=== PATIENT | female | born 1950 | race Caucasian/White ===

== ENCOUNTER 2021-11-17 02:40 | Outpatient (CLI) | payer MEDICARE, MEDICAID, SELFPAY ==
[2021-11-10 13:08] VITALS: BMI 39.9
--- NOTE | 2021-11-10 13:14 | PC.NURSE ---
Addendum entered by Bronwyn Jones RN 11/10/21 13:16: PROCEDURE 11/17/21 ARRIVE AT 0830 FOR 1030 PROCEDURE Original Note: Pre Radiology instructions Report to the Outpatient Waiting Room, entrance under the green pavilion located off [facility], at time on date . Procedure Time: . YOU MAY BE MONITORED AT HOSPITAL FOR UP TO 4 HOURS AFTER YOUR PROCEDURE. One visitor will be allowed to accompany the patient into the hospital. The visitor will be instructed to remain with patient at all times or leave the building due to restrictions. We will allow the visitor to come back to the postoperative area when patient is ready. NO children visitors allowed at this time. You and your visitor will be asked to self-screen and do not enter if you have any COVID symptoms. A mask is required within the hospital. Patients are to have no food or drink 6 hours prior to procedure time Driving will be restricted after the procedure, you must have a person to drive you home. Labs will be drawn in preop area and once reviewed, you will be taken to radiology area for procedure. When the procedure is completed, you will be taken to outpatient where you will be monitored for several hours. You may have one visitor in this area. Other than holding anti-coagulants, patient may take other medication(s) as scheduled. Prior to your appointment date patients are instructed to hold anti-coagulants after discussing with ordering provider to stop. If unable to discontinue anti-coagulants please notify radiologist. No aspirin or warfarin (Coumadin) for 7 days prior to the procedure. No clopidogrel (Plavix), ticagrelor (Brilinta), prasugrel (Effient) or dabigatran (Pradaxa) for 5 days prior to the procedure. No rivaroxaban (Xarelto), apixaban (Eliquis), dipyridamole (Aggrenox or Persantine) or cilostazol (Pletal) for 2 days prior to the procedure. Medications to discontinue per physician: NONE Date to take last dose: Please leave all valuables, including medications, at home the day of procedure. The hospital will not accept responsibility for valuables. Wear comfortable, loose fitting clothing. Follow any additional instructions given to you from ordering provider. Telephone instructions given to __PATIENT and asked if any additional questions and then verbalized understanding. Patient advised to call scheduling provider office or registration scheduling [phone] if any additional questions.
--- NOTE | ~2021-11-17 | XR_ITS ---
EXAMINATION: 1. CT lumbar spine w con 2. XR myelogram spine lumbosacral DATE: 11/17/2021 11:18 INDICATION: Spondylosis without myelopathy or radiculopathy. TECHNIQUE: The procedure including the risks, benefits, and alternatives was discussed with the patie nt. Risks discussed included spinal headache, cerebrospinal fluid leak, bleeding, and infection. The patient understood the risks and agreed to proceed. A timeout was performed to verify the patient' s name, date of , and procedure to be performed. The skin overlying the L5-L1 and L2-L3 levels was prepped and draped in usual sterile fashion. Subcutaneous 1% lidocaine was used for local anesth esia. A 22 gauge spinal needle was advanced under fluoroscopic guidance at L5-S1 and then at L2-L3. 17 mL Omnipaque 180 was injected. The needle was removed and the entry site was cleaned and dressed. There were no immediate complications. Fluoroscopy exposure time was 0.3 minutes. The total number o f images was 8. Computed tomography (CT) of the lumbar spine was performed without intravenous contra st. Automated exposure control and iterative reconstruction technique were employed. The dose-length product was 1158.99 mGy-cm. COMPARISON: None FINDINGS: LUMBAR MYELOGRAM: There is indentation of the thecal sac at multiple levels that will be further defi kishor on the postmyelogram CT. POST-MYELOGRAM LUMBAR SPINE CT: There is an epidural electrode in thoracic spine. There is a second e lectrode in the subcutaneous fat posterior to lumbar spine. There is 15 degrees levoscoliosis of thor acolumbar spine. Vertebral body heights are normal. There is mildly decreased disc height at T12-L1 a nd L1-L2, moderately decreased disc height at L2-L3 and L3-L4, mildly decreased disc height at L4-L5, and moderately decreased disc height at L5-S1. There is vacuum disc phenomenon from T12-L1 through L 3-L4 and at L5-S1. The conus medullaris is at T12-L1. The following disc levels are specifically disc ussed: T12-L1: The disc is bulging. There is mild right and moderate left facet joint osteoarthritis. There is no neural foraminal stenosis. There is mild central canal stenosis. L1-L2: The disc is bulging. There is moderate bilateral facet joint osteoarthritis. There is mild micah ateral neural foraminal stenosis. There is mild central canal stenosis. L2-L3: The disc is bulging. There is severe right and moderate left facet joint osteoarthritis. There is mild bilateral neural foraminal stenosis. There is mild central canal stenosis. L3-L4: The disc is bulging. There is severe bilateral facet joint osteoarthritis. There is mild bilat eral neural foraminal stenosis. There is mild central canal stenosis. L4-L5: The disc is bulging. There is severe bilateral facet joint osteoarthritis. There is mild bilat eral neural foraminal stenosis. There is mild central canal stenosis. L5-S1: The disc is bulging. There is severe bilateral facet joint osteoarthritis. There is mild left neural foraminal stenosis. There is mild central canal stenosis. IMPRESSION: 1. Moderate lumbar spondylosis. 2. Lumbar levoscoliosis. 3. Thoracic epidural electrode. Second electrode in the subcutaneous fat posterior to the lumbar spin e. Reviewed, dictated and finalized at location A. IMPRESSION: 1. Moderate lumbar spondylosis. 2. Lumbar levoscoliosis. 3. Thoracic epidural electrode. Second electrode in the subcutaneous fat director staffing ior to the lumbar spine.
[2021-11-17 08:32] VITALS: BP 154/74; PULSE 72; RESP 14; TEMP 36.1; O2SAT 96
[2021-11-17 08:40] VITALS: BMI 40.6
[2021-11-17 09:26] LABS: Platelet Count Result 306 k/mm3 (150-375)
[2021-11-17 09:45] LABS: INR 0.9; Prothrombin Time 12.1 Seconds (11.1-14.7)
[2021-11-17 11:19] VITALS: BP 133/86; PULSE 70; RESP 14; O2SAT 99
[2021-11-17 11:30] VITALS: BP 119/76; PULSE 65; RESP 14; O2SAT 99
[2021-11-17 11:45] VITALS: BP 114/70; PULSE 60; RESP 14; O2SAT 96
[2021-11-17 12:30] VITALS: BP 120/75; PULSE 62; RESP 14; O2SAT 97
[2021-11-17 13:20] VITALS: BP 123/75; PULSE 65; RESP 14; O2SAT 97
--- NOTE | 2021-11-17 13:21 | SUR.PHASEII ---
1310 DR. GARCIA CALLED TO ASK HIM FOR D/C ACTIVITY FOR PATIENT. NO RESTRICTIONS PER DR. GARCIA.
== END 2021-11-17 13:20 | disposition home or self-care (01) ==
PROVIDERS: PCP Internal Medicine Geriatric Medicine; Referring Provider Neurological Surgery; Visit Provider Radiology Diagnostic Radiology
DX: M47.896 Other spondylosis, lumbar region (principal)
CPT/HCPCS: 36415; 62304; 72132; 85049; 85610; Q9965

== ENCOUNTER 2022-04-30 00:48 | Day surgery (SDC) | payer MEDICARE, MEDICAID, SELFPAY ==
--- NOTE | 2022-04-24 09:29 | PC.NURSE ---
Report to the Outpatient Waiting Room, entrance under the green pavilion located off [facility], at time __0600 on date __04/30/22 . Planned Procedure Time: __0730 . Time changes happen often and if your time is changed the preop area will call you the afternoon before. - You and your visitor will be asked to self-screen and do not enter if you have any COVID symptoms. - Only one visitor is requested with a max of two and NO children visitors are allowed at this time. - The patient visitor may be requested to leave or wait in car when not with patient due to distancing restrictions. - A mask is optional within the hospital at this time. Patients may have clear liquids (water, carbonated beverages, clear teas, apple juice) until 3 hours prior to surgery with a maximum of 20 ounces. - No food from midnight until time of surgery - Infants may have breast milk until 4 hours before surgery, formula 6 hours prior to surgery. - Children will be allowed to drink immediately following surgery. If applicable, please bring a bottle or sippy cup to assist with drinking. Juice, water, soda, and popsicles are readily available. For infants on formula, please bring formula the day of surgery. Pacifiers are allowed. Take the following medications with a SIP of water the morning of surgery: ___CARVEDILOL,FLUOXETINE,LAMOTRIGINE,LEVOTHYROXINE AND ENTRESTO DO NOT STOP ANY OF YOUR OTHER PRESCRIPTION MEDICATIONS PRIOR TO SURGERY ?EXCEPT THE FOLLOWING Medications to discontinue per physician ___ALL VITAMINS/SUPPLEMENTS 3 DAYS PRE OP.LAST DOSE 04/26/22 Please no make-up, nail english, hairspray, perfume, deodorant, or body powder the day of surgery. No jewelry (including any body piercings) or valuables the day of surgery, leave them at home. Please take a shower or bath the night before, or the morning of, surgery with an antibacterial soap. Wear comfortable, loose fitting clothing. Children are encouraged to wear pajamas. - Jewelry must be removed prior to entering the operating room. Rings and piercings that are not removed may be cut off. - The hospital will not accept responsibility for valuables. - Please leave all valuables, including medications, at home the day of surgery. If you are going home after surgery, a licensed rolloff driver must drive you home. - NO public transportation without another adult if you receive anesthesia. - We recommend that an adult stay with you for 24 hours following discharge. - We also recommend that you do not drive, make important decision, drink alcoholic beverages, or take any drugs that were not prescribed by your health care provider for at least 24 hours after your discharge time. For Pediatric surgeries, we recommend two adults accompany the child home. Follow any additional instructions given to you from your surgeon. If you or anyone in your household have experienced Covid symptoms in the past week, please notify your surgeon or the nurse liaison at the phone number below for possible testing. Telephone instructions given to __PATIENT and asked if any additional questions and then verbalized understanding. Patient advised to call surgeon office or pre surgery nurse liaison [phone] if any additional questions.
[2022-04-24 09:47] VITALS: BMI 40.7
[2022-04-30] VITALS (14 sets, daily range): BP systolic 102–158; BP diastolic 41–98; PULSE 69–107; RESP 12–24; TEMP 35.9–36.9; O2SAT 87–96
--- NOTE | ~2022-04-30 | XR_ITS ---
EXAMINATION: XR fluoroscopy no charge DATE: 04/30/2022 10:23 INDICATION: Spinal stimulator removal/stimulator insert TECHNIQUE: 2 fluoroscopic images of the lower thoracic spine were obtained during procedure performed by Dr. Mccann. Radiologist was not present for the imaging or procedure. The amount of fluoroscopy time used during this procedure was 0.3 minutes. Total DAP was 0.3067 mGym^2 COMPARISON: None. FINDINGS: Cholecystectomy clip in the right upper quadrant. Images demonstrate tissue retractors on either side of a lucent surgical defect projecting over the thoracic spine. A spinal stimulator lead projects ov er the central canal of the lower thoracic spine at the site of the lucent surgical defect on the fin al image. IMPRESSION: 1. Fluoroscopy utilized during spinal stimulator lead placement at the lower thoracic spine. See proc edure note for further detail. Reviewed, dictated and finalized at location A. IMPRESSION: 1. Fluoroscopy utilized during spinal stimulator lead placement at the lower th oracic spine. See procedure note for further detail.
--- NOTE | 2022-04-30 06:54 | WPDANESEPPF ---
Anes - Initial Pre Proc Eval Procedure: Operation Date: 04/30/22 07:30 Proposed Procedures p Removal of Dorsal Column Stimulator, Insertion of Dorsal Column Stimulator by Laminectomy - Devonte Mccann MD Date/Time: 04/30/22 06:54 Surgeon: Devonte Mccann MD Pre Op Diagnosis: Chronic Back and Turner Legs Pain Patient Data Age: 71 Gender: F Height: 1.7 m Weight: 117.99 kg Allergies Allergy/AdvReac Type Severity Reaction Status Date / Time clonazepam [From Klonopin] Allergy Unknown Hallucinati Verified 04/30/22 06:32 ng diazepam Allergy Unknown Other Verified 04/30/22 06:32 morphine Allergy Unknown Other Verified 04/30/22 06:32 vilazodone [From Viibryd] Allergy Unknown Hyperactive Verified 04/30/22 06:32 NSAIDS (Non-Steroidal AdvReac Other Verified 04/30/22 06:32 Anti-Inflamma oxycodone AdvReac Other Verified 04/30/22 06:32 Home Medications Medication Instructions Recorded Confirmed Type atorvastatin 20 mg tablet 20 mg PO DAILY 11/03/21 04/30/22 History carvedilol 3.125 mg tablet 3.125 mg PO Q12H 11/03/21 04/30/22 History cholecalciferol (vitamin D3) 10 10 mcg PO DAILY 11/03/21 04/30/22 History mcg (400 unit) capsule fluoxetine 40 mg capsule 40 mg PO DAILY 11/03/21 04/30/22 History lamotrigine 150 mg tablet 75 mg PO DAILY 11/03/21 04/30/22 History mecobalamin (vitamin B12) 1,000 1,000 mcg sublingual DAILY 11/03/21 04/30/22 History mcg disintegrating tablet,sublingual olanzapine 5 mg tablet 5 mg PO DAILY 11/03/21 04/30/22 History omeprazole 20 mg capsule,delayed 20 mg PO DAILY 11/03/21 04/30/22 History release levothyroxine 88 mcg tablet 88 mcg PO DAILY 11/10/21 04/30/22 History sacubitril 24 mg-valsartan 26 mg 1 tablet PO BID 11/10/21 04/30/22 History tablet (Entresto) spironolactone 25 mg tablet 25 mg PO DAILY 11/10/21 04/30/22 History Patient hx anesthesia problems: other (low bp and o2) Family hx anesthesia problems: none Results Review: All pre-operative results and documents have been reviewed as part of the pre-operative evaluation. [facility] Past Medical History Medical History Cardiomyopathy Degenerative disc disease Depression with anxiety Hepatitis C Hiatal hernia High blood pressure High cholesterol Lumbar radicular pain Lumbar stenosis with neurogenic claudication Other chronic pain Spine disorder Spondylosis without myelopathy or radiculopathy, lumbosacral region Trochanteric bursitis of right hip Surgical History Surgical History H/O bilateral cataract extraction H/O hernia repair x2 Hx of appendectomy Hx of cholecystectomy S/P complete hysterectomy S/P excision of lipoma x2 from upper rt thigh S/P insertion of spinal cord stimulator 05/10/20 S/P tonsillectomy and adenoidectomy Family History Family History Other Acute myocardial infarction Depression Emphysema lung High cholesterol Hypertension Spine disorder Social History Social History Smoking status: Never smoker Second hand tobacco smoke exposure: No Alcohol intake: never Substance use: never Living arrangements: alone Occupation/Education: retired Spiritual care concerns: No Anes - Eval Final PreProcedure Day of Procedure 04/30/22 06:54 Patient weight: morbidly obese Heart: regular rate and rhythm Lungs: clear to auscultation Airway: Mallampati scale class III Neurological: alert and oriented Last oral intake: >/= 8 hours ASA classification: IV Emergent: no Anesthetic plan: proceed Anesthesia type and monitoring: general ETT and standard monitoring Results Review: All pre-operative results and documents have been reviewed as part of the pre-operative evaluation. Informed Consent: The patient's anesthetic plan an
[2022-04-30] MEDS: LACTATED RINGERS 1,000 ML 30 ML IV CONT (07:31)
--- NOTE | 2022-04-30 07:45 | PM.IMHP ---
H&P: HPI History of Present Illness Date/Time: 04/30/22 07:45 Chief Complaint: Vicki is a 71-year-old female with back and leg pain that responded dorsal column stimulation but the leads which were placed percutaneously have migrated and needs to be revised. Her generator is also near end of life. She is not having any new bowel or bladder difficulty or other constitutional problems. She does not have any specific muscle group weakness or dermatomal numbness. Review of Systems Review of Systems: Patient denies shortness of breath, cough, fever, chills, nausea, vomiting, weight loss, weight gain, chest pain, dysuria. She has back and leg pain as above. Review of systems is otherwise negative on 12 systems except as noted elsewhere. [facility] Past Medical History Medical History Cardiomyopathy Degenerative disc disease Depression with anxiety Hepatitis C Hiatal hernia High blood pressure High cholesterol Lumbar radicular pain Lumbar stenosis with neurogenic claudication Other chronic pain Spine disorder Spondylosis without myelopathy or radiculopathy, lumbosacral region Trochanteric bursitis of right hip Surgical History Surgical History H/O bilateral cataract extraction H/O hernia repair x2 Hx of appendectomy Hx of cholecystectomy S/P complete hysterectomy S/P excision of lipoma x2 from upper rt thigh S/P insertion of spinal cord stimulator 05/10/20 S/P tonsillectomy and adenoidectomy Family History Family History Other Acute myocardial infarction Depression Emphysema lung High cholesterol Hypertension Spine disorder Social History Social History Smoking status: Never smoker Second hand tobacco smoke exposure: No Alcohol intake: never Substance use: never Living arrangements: alone Occupation/Education: retired Spiritual care concerns: No Meds Home Medications and Allergies Home Medications Medication Instructions Recorded Confirmed Type atorvastatin 20 mg tablet 20 mg PO DAILY 11/03/21 04/30/22 History carvedilol 3.125 mg tablet 3.125 mg PO Q12H 11/03/21 04/30/22 History cholecalciferol (vitamin D3) 10 10 mcg PO DAILY 11/03/21 04/30/22 History mcg (400 unit) capsule fluoxetine 40 mg capsule 40 mg PO DAILY 11/03/21 04/30/22 History lamotrigine 150 mg tablet 75 mg PO DAILY 11/03/21 04/30/22 History mecobalamin (vitamin B12) 1,000 1,000 mcg sublingual DAILY 11/03/21 04/30/22 History mcg disintegrating tablet,sublingual olanzapine 5 mg tablet 5 mg PO DAILY 11/03/21 04/30/22 History omeprazole 20 mg capsule,delayed 20 mg PO DAILY 11/03/21 04/30/22 History release levothyroxine 88 mcg tablet 88 mcg PO DAILY 11/10/21 04/30/22 History sacubitril 24 mg-valsartan 26 mg 1 tablet PO BID 11/10/21 04/30/22 History tablet (Entresto) spironolactone 25 mg tablet 25 mg PO DAILY 11/10/21 04/30/22 History Allergies Allergy/AdvReac Type Severity Reaction Status Date / Time clonazepam [From Klonopin] Allergy Unknown Hallucinati Verified 04/30/22 06:32 ng diazepam Allergy Unknown Other Verified 04/30/22 06:32 morphine Allergy Unknown Other Verified 04/30/22 06:32 vilazodone [From Viibryd] Allergy Unknown Hyperactive Verified 04/30/22 06:32 NSAIDS (Non-Steroidal AdvReac Other Verified 04/30/22 06:32 Anti-Inflamma oxycodone AdvReac Other Verified 04/30/22 06:32 Vital Signs Vital Signs - 24 hr 04/30/22 07:21 Temperature 96.7 F L Pulse Rate 69 Respiratory Rate 16 Blood Pressure 130/62 Pulse Oximetry 96 Oxygen Delivery Room Air Exam Narrative: Strength is 5/5 in all muscle groups of the bilateral lower extremities. Sensation is intact to light touch throughout the lower extremities. Breathing is nonlabored. She s
--- NOTE | 2022-04-30 07:47 | WPDHPUPDATE1 ---
History and Physical Update Update Date/Time: 04/30/22 07:47 History and Physical has been reviewed, including an updated exam of the patient. There are NO changes in the patient's condition. Risks, benefits, and alternatives have been discussed and questions answered. Patient agrees to proceed with procedure.
[2022-04-30] MEDS: ceFAZolin 2 GM/D5W 50 ML 2 GM/50 ML BAG IVPB (07:52)
[2022-04-30 08:03] LABS: Partial Thromboplastin Time 24.5 SECONDS (22.3-36.8)
[2022-04-30] MEDS: LIDO 1%/EPINEPHRINE 1:100,000 50 ML VIAL 10 ML INFILTRATE (08:46)
[2022-04-30] MEDS: VANCOMYCIN HCL 1,000 MG VIAL 500 MG TOPICAL (08:47)
--- NOTE | 2022-04-30 09:15 | W.PM.PROC2 ---
Procedure Note - Detailed Date of Procedure 04/30/22 Pre-op Diagnosis Chronic Back and Turner Legs Pain Post-op Diagnosis Same Procedure Performed Removal of percutaneously placed dorsal column stimulator lead and generator, placement of dorsal column stimulator lead and generator by laminectomy with the lead at T7 and T8 and a T8-9 laminectomy Surgeon Devonte Mccann MD Document Control Coordinator Yolie Anesthesia General Description of Procedure Vicki was brought to the operating room in the supine position, was sedated, intubated and placed under general anesthesia in routine fashion. She was then turned into the prone position on a Mekhi frame. The area of operation or back was examined, marked for incision, prepped and draped in routine sterile fashion. Incision was marked transversely above the right buttock over the previous generator and longitudinally in the thoracic spine based on the T9 pedicles. These areas were injected with 0.5% lidocaine with [id number] epinephrine. Intravenous antibiotics given prior to incision. Incision was made in both locations with a 10 blade scalpel. Bovie cautery was used to come to the soft tissues until the generator was discovered and could be removed from the pocket. The excess wire was uncoiled from the soft tissue and the wires could be removed from the epidural space from the pocket. The entire system was passed off the field. At the thoracic incision a subperiosteal dissection of the muscle soft tissue away from spinous processes and lamina was performed with a subperiosteal elevator and Bovie cautery. A verifying x-rays obtained to verify the level of operation. At T8-9 AE laminectomy was performed until a short wide area the dura was uncovered. This was done with Leksell rongeur Kerrison punches and curved curettes. The dorsal epidural space was then cannulated with lead trial. The lead was then placed into the dorsal epidural space until was confirmed to be across the T7-8 disc space and mostly behind the T8 vertebral body. An anchor was attached to 1 of the wires which was touch the superior spinous process using a 3-0 Prolene suture. Tension relief loops were placed in both the wires which then buried to the flank incision using a subcutaneous Passer. Here they were inserted into the generator site and secured the using the small screwdriver for that purpose. Both incisions were copiously irrigated with bacitracin irrigation all bleeding stopped with bipolar cautery. The generator was placed in the pocket with excess wire coiled up underneath it and with vancomycin impregnated pellets. the wounds were then closed in layered fashion with 2-0 Vicryl interrupted sutures in the thoracic fascia. At both incisions 3-0 Vicryl buried interrupted sutures were placed in the dermis and the skin was closed with a running 4-0 Monocryl subcuticular stitch and dressed with Dermabond. The patient was allowed to wake up in the operating room was taken to the recovery room in stable condition. There were no immediate complications of this operation. All counts were reported correct in the case. Blood loss was 10 cc. The patient was neurologically at her baseline postoperatively. Estimated Blood Loss 10 IV Fluids 1,000 Complications None Condition Stable Disposition PACU [facility] Billing Surgery - Charge Forward: Surgery Billing
[2022-04-30] MEDS: ONDANSETRON INJ 4 MG/2 ML VIAL IV PUSH (09:27)
[2022-04-30] MEDS: diphenhydrAMINE HCl INJ 50 MG/ML VIAL 12.5 MG IV PUSH (10:12)
--- NOTE | 2022-04-30 14:39 | SUR.PHASEII ---
1300 - pt in op recovery. pt alert and oriented x 3. pt's o2 sat ranged from 86%-93% during recovery in OP. pt placed on oxygen and times and used incentive spirometry as ordered. pt demonstrated without difficulty. pt denies SOB. resp even and unlabored. pt stated that she has had low o2 sats after other procedures in the past. pt maintained an o2 stat over 90% for 30 minutes prior to discharge
== END 2022-04-30 13:45 | disposition home or self-care (01) ==
PROVIDERS: PCP Internal Medicine Geriatric Medicine; Visit Provider Neurological Surgery
PROC: (CPT 63685; principal; 2022-04-30 07:30)
DX: M54.9 Dorsalgia, unspecified (principal); M79.605 Pain in left leg; M79.604 Pain in right leg; M41.9 Scoliosis, unspecified; I10 Essential (primary) hypertension; E78.00 Pure hypercholesterolemia, unspecified; I42.9 Cardiomyopathy, unspecified; F41.8 Other specified anxiety disorders; E66.01 Morbid (severe) obesity due to excess calories; Z68.41 Body mass index [BMI] 40.0-44.9, adult
CPT/HCPCS: 63685; 63655; 36415; 85730; 86850; 86900; 86901; 99199; C1713; C1778; J0330; J0690; J1100; J1170; J1200; J2370; J2405; J2704; J3010; J3370; J7120